=== PATIENT | male | born 1995 | race Caucasian/White ===

== ENCOUNTER 2016-07-07 22:42 | Emergency (ER) | payer OTHER ==
--- NOTE | ~2016-07-07 | ER ---
PATIENT'S NAME: JANICE PATRICIO [facility] AGE: 20 Y [address] ROOM: [place] [address] LOCATION: [facility] ADMIT DATE: 07/07/2016 ER/Outpatient Report DISCHARGE DATE: 07/07/2016 FAMILY PHYSICIAN: PHYSICIAN, NO ATTENDING PHYSICIAN: Xander Juarez Time of Arrival: 2246 hours. Time of Evaluation: 2246 hours. CHIEF COMPLAINT: Laceration. HISTORY OF PRESENT ILLNESS: The patient is a 20-year-old male, who presents to the emergency department today with chief complaint of laceration to the left fifth digit. He reports this occurred minutes prior to arrival. He was trying to close a window, and the window broke and cut his finger. He has sharp pain. It is mild in severity. It is worse with movement. He does report his tetanus is up-to- date. PAST MEDICAL HISTORY: None. PAST SURGICAL HISTORY: None. SOCIAL HISTORY: The patient denies any tobacco, alcohol use, also denies any illicit drug use. ALLERGIES: NO KNOWN DRUG ALLERGIES. MEDICATIONS: None. PRIMARY CARE DOCTOR: None. REVIEW OF SYSTEMS: All systems are reviewed by myself and are negative with the exception of those discussed in the HPI and past medical history. PHYSICAL EXAMINATION: VITAL SIGNS: Weight 67.7 kg, blood pressure 151/77, pulse 94, respiratory rate 16, temperature 97.9, oxygen saturation 100% on room air. PATIENT'S NAME: JANICE PATRICIO [facility] AGE: 20 Y [address] ROOM: [place] [address] LOCATION: [facility] ADMIT DATE: 07/07/2016 ER/Outpatient Report DISCHARGE DATE: 07/07/2016 FAMILY PHYSICIAN: PHYSICIAN, NO ATTENDING PHYSICIAN: Xander Juarez GENERAL: The patient is a 20-year-old male, who appears stated age, in no acute distress at this time. HEENT: Head: Normocephalic, atraumatic. Pupils are equal, round, and reactive to light and accommodation. NECK: Supple. There is no nuchal rigidity. CARDIOVASCULAR: Regular rate and rhythm. No murmurs, rubs, or gallops. LUNGS: Clear to auscultation bilaterally. No wheezes, rales, or rhonchi. MUSCULOSKELETAL: The patient does have full range of motion to the left fifth digit, both distally and proximally. He has normal range of motion. The patient does have a 2.5 cm laceration on the palmar aspect and lateral aspect at the base of the fifth pinky. LABORATORY DATA AND X-RAYS: None. IMPRESSION: 1. A 2.5 cm laceration to the palmar aspect and the lateral aspect of the fifth digit of the left hand with simple repair. 2. Initial visit. EMERGENCY DEPARTMENT COURSE: The patient was brought back to the examination room. Seen and evaluated by myself. The patient's laceration was evaluated by myself. A 1% lidocaine without epinephrine is used for a digital block of the fifth digit. The wound is explored. There does not appear to be any tendon involvement. I have discussed the risks and benefits of repair. 5-0 Ethilon is used in simple interrupted fashion to close the wound after copious irrigation. There are no foreign bodies identified. The wound is closed. There is good cosmesis, good hemostasis. Wound care is applied. A splint is applied. I have discussed suture removal in 10 to 14 days. I have discussed wound care. I have discussed following up with primary care doctor in 3 to 5 days. I have discussed return to care instructions including worsening symptoms or any other concerns including evidence of infection to return to the emergency department as soon as possible. The patient is agreeable without further questions at this time. DISPOSITION: The patient discharged to home in good condition. DO ADRIANA MCELROY/felipe PATIENT'S NAME: JANICE PATRICIO [facility] AGE: 20 Y [address] ROOM: [place] [address] LOCATION: [facility] ADMIT DATE: 07/07/2016 ER/Outpatient Report DISCHARGE DATE: 07/07/2016 FAMILY PHYSICIAN: PHYSICIAN, NO ATTENDING PHYSICIAN: Xander Juarez /[id number] d: 07/08/16 0156 t: 05/03/17 1019, OUTPATIENT REPORT
== END 2016-07-07 23:07 | disposition disaster alternative care site (69) ==
LOC: GACC 22:42
PROC: 0HQGXZZ Repair Left Hand Skin, External Approach (ICD-10-PCS; principal; 2016-07-07)
DX: S61.412A Laceration without foreign body of left hand, initial encounter (principal); W26.9XXA Contact with unspecified sharp object(s), initial encounter